=== PATIENT | female | born 1950 ===

== ENCOUNTER → 2020-09-16 | Outpatient (CLI) | payer MEDICARE ==
[2020-09-19 13:30] LABS: Stool Occult Bld Immuno 1 Negative (NEGATIVE)
== END | disposition home or self-care (01) ==
LOC: LAB 10:33 → LAB SHORT 10:33 → LAB FUT 08-23 09:30
PROVIDERS: Nurse Practitioner Family
DX: Z12.11 Encounter for screening for malignant neoplasm of colon (principal)
CPT/HCPCS: G0328

== ENCOUNTER → 2020-11-22 | Outpatient (CLI) | payer MEDICARE | END | disposition home or self-care (01) | LOC: LAB 14:11 → LAB SHORT 14:11 | DX: D21.12 Benign neoplasm of connective and other soft tissue of left upper limb, including shoulder (principal) | CPT/HCPCS: 88305 ==